=== PATIENT | female | born 1990 | race Caucasian/White ===

== ENCOUNTER 2020-06-20 08:31 | Inpatient (IN) | payer BC ==
[2020-06-20] VITALS (27 sets, daily range): BP systolic 100–147; BP diastolic 55–86
[~2020-06-20] VITALS: Ht 180.3 cm; Wt 175.4 kg
[~2020-06-20 08:31] MED LIST: DUONEB 2.5-0.5 M3 ML INH; LEVAQUIN 500 M500 M4 PO; PROAIR HFA8.5 GM INH; SALINE NASAL SP30 ML NASAL
[2020-06-20 09:30] LABS: BE(vivo) -2.6 mmol/L (-2 to +3); HCO3 20.6 mmol/L (22.0-26.0); PCO2 31.2 mmHg (35.0-45.0); PO2 67.1 mmHg (80.0-100.0); pH 7.437 (7.360-7.450); sO2 94.2 % (92.0-98.0)
[2020-06-20 09:34] LABS: ABSOLUTE NEUTROPHILS 15.1 thou/uL (1.4-8.2); BASOPHILS 0.3 % (0.0-2.0); EOSINOPHILS 0.3 % (0.0-3.0); HEMATOCRIT 38.6 % (37.0-47.0); HEMOGLOBIN 12.8 gm/dL (12.0-15.0); LYMPHOCYTES 5.8 % (24.0-44.0); MCH 29.4 pg (26.0-34.0); MCHC 33.2 g/dL (28.0-37.0); MCV 88.6 fL (80.0-100.0); MONOCYTES 6.3 % (1.0-8.0); PLATELET COUNT 225 thou/uL (150-400); POLYS 87.3 % (36.0-66.0); RBC 4.35 mil/uL (4.20-5.00); RDW 14.2 % (10.5-14.5); WBC 17.3 thou/uL (4.0-11.0)
[2020-06-20 09:38] LABS: CREATININE 0.9 mg/dL (0.6-1.0); POTASSIUM 3.8 mmol/L (3.5-5.1)
[2020-06-20 09:46] LABS: ALBUMIN 3.3 g/dL (3.4-5.0); TOTAL BILIRUBIN 0.5 mg/dL (0.2-1.0); TOTAL PROTEIN 7.3 g/dL (6.4-8.2)
--- NOTE | 2020-06-20 13:20 | NUR ---
PATIENT ADMITTED TO ICU ROOM 246 VIA CART FROM ED. PLACED IN ENTERIC PRECAUTIONS. PLACED BACK ON BIPAP AFTER AMBULATING TO THE BED AND FIO2 INCREASED TO 70%. RESP RATE IN THE [address] SOLORIO IN UNIT AND AWARE. PATIENT STATES THAT SHE IS NOT WANT THE BREATHING TUBE AT THIS TIME. O2 SAT IN THE MID 80'S AND FIO2 INCREASED TO 80% AT 1310.
--- NOTE | 2020-06-20 17:34 | NUR ---
SPOKE WITH THE PATIENT'S MOTHER, SOMMER AND UPDATED HER. GIVEN CODE FOR UPDATES.
--- NOTE | 2020-06-20 18:00 | NUR ---
PATIENT HAS STABALIZED SHE IS RESTING QUIETLY IN THE CHAIR. DYSPNEA NOTED WITH MINIMAL EXERTION. WILL CONTINUE TO MONITOR.
[2020-06-21] VITALS (37 sets, daily range): BP systolic 109–164; BP diastolic 48–93
[2020-06-21 01:06] LABS: GLYCOHEMOGLOBIN (HGB A1C) 5.9 % (4.8-5.6)
--- NOTE | 2020-06-21 03:04 | NUR ---
Report received at 1900, care assumed. pt reports SOB on exertion. On BIPAP settings, FIO2 INCREASED TO 80%. Assessments done as documeted. pt noted to be tachypneic. Reports being anxiuos. Pt encouraged to slow down on breathing and breathe normal. FIO2 increased to 90% due to pt desating to low 80s. Will continue to monitor.
[2020-06-21 05:36] LABS: HEMATOCRIT 37.8 % (37.0-47.0); HEMOGLOBIN 12.1 gm/dL (12.0-15.0); MCH 29.1 pg (26.0-34.0); MCHC 32.1 g/dL (28.0-37.0); MCV 90.6 fL (80.0-100.0); RBC 4.17 mil/uL (4.20-5.00); RDW 14.1 % (10.5-14.5); WBC 16.9 thou/uL (4.0-11.0)
[2020-06-21 05:37] LABS: CALCIUM 9.1 mg/dL (8.5-10.1); CREATININE 0.8 mg/dL (0.6-1.0); POTASSIUM 4.1 mmol/L (3.5-5.1)
--- NOTE | 2020-06-21 09:13 | HC ---
[facility] [place] [address] CONSULTATION Name: KEL GARCIA Room #: 246-P ADM IN M.R.#: [id number] Admission: 06/20/20 Attend Phys: Vincent Jurado MD Discharge: Date of : 86 Report #: [id number] THIS REPORT FOR: cc: FAM - Family physician unknown FAM - Family physician unknown Sylvester Zaman MD ~ DATE OF SERVICE: 06/20/2020 INFECTIOUS DISEASE CONSULTATION ATTENDING PHYSICIAN: Dr. Juardo REASON FOR EVALUATION: Pneumonitis, setting of asthma. HISTORY OF PRESENT ILLNESS: Chart reviewed, patient examined. This is a 29-year-old with a known history of asthma, who has been ill for the last 24-36 hours. It started as a cough that was somewhat of a nuisance and progressed over the course of several hours. Last evening, she developed fevers and more dyspnea, some wheezing. Denied any significant gastrointestinal-related complaints. It is not clear that she has had any exposure history. In the emergency room, was found to have hypoxemia with a pO2 of 67, on a nonrebreather. White count was elevated to 17.3. Chest x-ray noted bilateral patchy pulmonary infiltrates, greatest in the right upper lobe. COVID test, initially the antigen was negative. Repeat test is pending. She is currently afebrile. She is generally lucid. She was empirically started on azithromycin and ceftriaxone, given methylprednisolone as well. ALLERGIES: None known. MEDICATIONS: Include azithromycin, ceftriaxone, famotidine, enoxaparin, guaifenesin, methylprednisolone, thiamine, ipratropium, albuterol inhaler, hydrocodone and acetaminophen. PAST MEDICAL HISTORY: As described above, history of asthma. SOCIAL HISTORY: Nonsmoker. No ethanol, no illicit drug use. FAMILY HISTORY: Noncontributory. REVIEW OF SYSTEMS: Otherwise, unremarkable 10-point review of systems. PHYSICAL EXAMINATION: GENERAL: She is alert, cooperative. She is in [id number] distress. She is obese. [address] [address] CONSULTATION Name: KEL GARCIA Room #: [facility] IN .R.#: [id number] Admission: 06/20/20 Attend Phys: Vincent Jurado MD Discharge: Date of : 86 Report #: [id number] VITAL SIGNS: Temperature 98.5, pulse ____, respirations 30, blood pressure 147/81. SKIN: Warm, dry. No rashes. HEENT: Normocephalic. Extraocular muscles are intact. She has a BiPAP in place. NECK: Supple. LUNGS: Few scattered wheezes. Coarse breath sounds. HEART: Regular, distant. I do not appreciate a murmur. ABDOMEN: Obese, soft, nontender. EXTREMITIES: No cyanosis. GENITOURINARY AND RECTAL: Deferred. LABORATORY DATA: Procalcitonin 0.29. ProBNP of 426. Initial COVID antigen testing was negative. Lactic acid 1.0. Chest x-ray as described above and bilateral patchy infiltrates. Electrolytes: Sodium 139, potassium 3.8, chloride 103, bicarb 26, anion gap of 10. BUN and creatinine 10 and 0.9, glucose of 150. LFTs unremarkable. Albumin of 3.3, total protein is 7.3, estimated GFR of 73. CBC: White count of 17.3, H 12.8 and 38.6, platelets of 225 and lymphocytopenia. ABGs: The pH 7.437, pCO2 of 31.2, pO2 of 67.1 and again, on a nonrebreather and now on BiPAP. ASSESSMENT: Pneumonitis in the setting of asthma, complicated by respiratory failure. Certainly, I agree with empiric antimicrobial therapy. I think the ceftriaxone and azithromycin is reasonable, considering it is likely community-acquired and we will check some additional urinary antigens. Await COVID results. Flu swab is pending as well. Continue corticosteroids. In the event that she is COVID positive, I would likely add remdesivir. She remains tenuous at this point. Continue oxygen support, wean as allowed. <ELECTRONICALLY SIGNED> By: Sylvester Zaman MD 06/21/20 0913 [id number] Sylvester Zaman MD /nt
--- NOTE | 2020-06-21 12:30 | NUR ---
PATIENT ASSISTED UP TO THE CHAIR AND PLACED ON OPTIFLOW WITH FIO2 AT 89% AND FLOW OF 55L. TOLERATING WELL, ABLE TO EAT DIET.
--- NOTE | 2020-06-21 14:27 | NUR ---
patient admits with SOA/asthma. Attempted to call mom no answer. Chart reviewed. Patients COVID negative. She cont in isolation. She currently on BIPAP. 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 Casemgt following for dc planning.
--- NOTE | 2020-06-21 16:49 | NUR ---
PATIENT IS PROGRESSING TOWARDS OUTCOME GOALS O2 SAT IN THE LOWER TO MID 90'S. VSS. MONITOR SHOWING NSR. ABLE TO FEED SELF AND DO ORAL CARE.
[2020-06-22] VITALS (24 sets, daily range): BP systolic 106–147; BP diastolic 52–79
[2020-06-22 03:12] LABS: HEMATOCRIT 36.9 % (37.0-47.0); HEMOGLOBIN 11.7 gm/dL (12.0-15.0); MCH 28.9 pg (26.0-34.0); MCHC 31.8 g/dL (28.0-37.0); MCV 90.8 fL (80.0-100.0); RBC 4.06 mil/uL (4.20-5.00); RDW 14.3 % (10.5-14.5); WBC 19.6 thou/uL (4.0-11.0)
[2020-06-22 03:21] LABS: CALCIUM 9.2 mg/dL (8.5-10.1); CREATININE 0.9 mg/dL (0.6-1.0); POTASSIUM 4.5 mmol/L (3.5-5.1)
--- NOTE | 2020-06-22 06:34 | NUR ---
ASSUMED CARE AT 1900. ASSISTED TO BSC, PT HAD BM AND CONCENTRATED URINE OUT. GOT INTO BED AFTERWARD. VERY LITTLE O2 RESERVE FOR THIS MINIMAL ACTIVITY, TOOK 10-15 MINUTES FOR RR TO GET BELOW 35 AND O2 SATS FROM 87% BACK TO 91%. DESATS TO 85-97% WHEN COUGHING. OPTIFLO INCREASED TO 94% AT 0145. 2245-SPOKE TO ARSEN, GOT PPN DC-D AND STARTED IVF.
--- NOTE | 2020-06-22 15:30 | NUR ---
ASSUMED CARE AT 0700. SPOKE WITH PATIENT'S MOTHER FROM [phone] AND SHE WAS UPDATED ON PATIENT'S CONDITION AND PLAN OF CARE.
[2020-06-23] VITALS (25 sets, daily range): BP systolic 118–160; BP diastolic 3–87
[2020-06-23 03:02] LABS: CREATININE 0.8 mg/dL (0.6-1.0); POTASSIUM 4.4 mmol/L (3.5-5.1)
--- NOTE | 2020-06-23 06:20 | NUR ---
This RN to bedside at 1900. Patient afebrile, coarse, VSS. Remained on hi flow nasal cannula all night. 94% and 50L. Fluids infusing. Coarse lung sounds throughout. Patient did not void all night. Will pass on to dayshift and will continue to monitor.
--- NOTE | 2020-06-23 11:01 | NUR ---
ASSUMED CARE AT 0700. PATIENT'S MOTHER CALLED AND WAS UPDATED AND EDUCATED ON PATIENT'S CONDITION AND PLAN OF CARE FROM [phone].
[2020-06-24] VITALS (32 sets, daily range): BP systolic 113–171; BP diastolic 55–88
[2020-06-24 04:20] LABS: CREATININE 0.8 mg/dL (0.6-1.0); POTASSIUM 4.4 mmol/L (3.5-5.1)
--- NOTE | 2020-06-24 06:10 | NUR ---
Patient status essentially unchanged. Pt remains on hi flow nasal cannula at 50L and 94%. Patient easily desats once coughing, up to the bathroom or exerting much energy. Attempted to place on bipap a couple times when patient was breathing 30+ a minute and consistently satting 87-90%. Patient refused bipap. RN educating patient on saving energy and how dangerous it can be to saturation below 90%. Patient says she is aware and refused bipap. Sats remain 88-92%. Patient sounds coarse and wheezy throughout.
--- NOTE | 2020-06-24 13:46 | NUR ---
chart review. cont to require bipap and o2. unable to visit with lina. smiley called her mom steven, no answer. left message requested call back. will cont following as needed for dc needs.
--- NOTE | 2020-06-24 18:32 | NUR ---
ASSUMED CARE AT 0700. SPOKE WITH PATIENT'S MOTHER AND UPDATED HER ON PATIENT CONDITION AND PLAN OF CARE. THE CALL WAS FROM [phone]. PATIENT SLOWLY PROGRESSING TOWARDS THE PLAN OF CARE EVIDENCED BY SLIGHTLY LOWER BUT STILL HIGH OXYGEN DEMANDS.
[2020-06-25] VITALS (27 sets, daily range): BP systolic 102–149; BP diastolic 52–85
--- NOTE | 2020-06-25 05:53 | NUR ---
This RN to bedside at 1900. Patient Optiflow settings remain the same. 50L and 94% to keep oxygen sats above 90%. Around 0300, patient desatting and sustaining 84-89% Patient refused Bipap multiple times even with further education. Patient stated "I want to get better I can't get on bipap". Even with further education patient refuses bipap. Irvin RT changed out bipap machine tubing and patient seemed to be oxygenating better. Patient currently satting low 90's. Lungs sound coarse and wheezy. Will continue to monitor.
--- NOTE | 2020-06-25 13:16 | NUR ---
ANIMAL RIDES MANAGER FROM [employer] CALLING TO OBTAIN INFORMATION, SHE WASDIRECTED TO THE HOSPITAL OPPERATOR TO SPEAK WITH SARIAH.
--- NOTE | 2020-06-25 14:21 | NUR ---
FOR DC PLANNING ASSISTANCE CALL ALLISON SANTIAGO / , EXT [phone] .
[2020-06-25 16:43] LABS: HEMOGLOBIN 11.6 gm/dL (12.0-15.0); MCH 28.5 pg (26.0-34.0); MCHC 32.3 g/dL (28.0-37.0); MCV 88.4 fL (80.0-100.0); RBC 4.08 mil/uL (4.20-5.00); WBC 15.8 thou/uL (4.0-11.0)
[2020-06-25 16:47] LABS: CALCIUM 9.1 mg/dL (8.5-10.1); CREATININE 0.7 mg/dL (0.6-1.0); MAGNESIUM 2.3 mg/dL (1.8-2.4); POTASSIUM 4.4 mmol/L (3.5-5.1)
[2020-06-26] VITALS (32 sets, daily range): BP systolic 108–160; BP diastolic 44–97
--- NOTE | 2020-06-26 05:24 | NUR ---
NO SIGNIFICANT EVENTS OVER NIGHT. NO C/O PAIN. PT SAT UP IN THE CHAIR FOR A FEW HOURS AT BEGINNING OF SHIFT. SHE HAS BEEN SLEEPING MOST OF THE NIGHT. RESPIRATIONS EVEN AND UNLABORED. PT DOES DESAT INTO THE MID-UPPER 80S WITH EXERTION. SHE REMAINS ON OPTIFLOW 45L, 70% FIO2. PROGRESSING SLOWLY TOWARD POC GOALS. WILL CONTINUE TO MONITOR FURTHER.
[2020-06-26 06:09] LABS: HEMATOCRIT 35.6 % (37.0-47.0); HEMOGLOBIN 11.2 gm/dL (12.0-15.0); MCH 28.4 pg (26.0-34.0); MCHC 31.4 g/dL (28.0-37.0); MCV 90.6 fL (80.0-100.0); RBC 3.93 mil/uL (4.20-5.00)
[2020-06-26 06:31] LABS: CALCIUM 8.8 mg/dL (8.5-10.1); CREATININE 0.8 mg/dL (0.6-1.0); MAGNESIUM 2.4 mg/dL (1.8-2.4); POTASSIUM 4.2 mmol/L (3.5-5.1)
--- NOTE | 2020-06-26 14:03 | NUR ---
INCENTIVE SPIROMETER GIVEN WITH INSTRUCTION TO PT. PT APPEARS EXCITED TO USE IS.
--- NOTE | 2020-06-26 16:00 | NUR ---
PT'S MOTHER AND DESIGNATED CONTACT KONGReid GARCIA CALLED AND WAS GIVEN PT UPDATE. RN ANSWERED ALL QUESTIONS PT'S MOTHER HAS AT THIS TIME.
[2020-06-27] VITALS (55 sets, daily range): BP systolic 98–157; BP diastolic 46–82
[2020-06-27 05:44] LABS: HEMATOCRIT 35.7 % (37.0-47.0); HEMOGLOBIN 11.5 gm/dL (12.0-15.0); MCH 28.7 pg (26.0-34.0); MCHC 32.1 g/dL (28.0-37.0); MCV 89.5 fL (80.0-100.0); RBC 3.99 mil/uL (4.20-5.00); RDW 13.9 % (10.5-14.5); WBC 12.9 thou/uL (4.0-11.0)
[2020-06-27 06:06] LABS: CALCIUM 8.9 mg/dL (8.5-10.1); CREATININE 0.8 mg/dL (0.6-1.0); MAGNESIUM 2.3 mg/dL (1.8-2.4); POTASSIUM 4.2 mmol/L (3.5-5.1)
--- NOTE | 2020-06-27 11:07 | NUR ---
ASSUMED CARE AT 0700, ASSESSMENT AND VITAL SIGNS COMPLETED PER ICU PROTOCOL. DR. ABARCA ROUNDED THIS AM, PLAN OF CARE DISCUSSED, NEW ORDERS RECEIVED. RN WILL CONTINUE TO MONITOR.
--- NOTE | 2020-06-27 12:27 | NUR ---
ON-GOING ASSESSMENT: CM REVIEWED CHART. PT REMAINS ON HIGH FI02. PT IS CONTINUING ON IV ANBX AND IV STEROIDS. CM WILL CONTINUE TO FOLLOW TO ASSIST NEEDED.
[2020-06-28] VITALS (10 sets, daily range): BP systolic 94–136; BP diastolic 47–83
--- NOTE | 2020-06-28 02:41 | NUR ---
PATIENT REMAINS A/O. DENIES ANY SOA. AFEBRILE. VSS. REMAINS ON 8L VIA NC. PATIENT TX ORDERS TO CCU. REPORT CALLED TO CCU RN. PATIENT OFF THE UNIT AT APPROX 0200. TRANSFERRED VIA HOSPITAL BED. ATTACHED TO THE MONITOR. PORTABLE OXYGEN. DENIES NEEDS. ALL QUESTIONS ANSWERED. PATIENT TRANSFERED WITH ALL PERSONAL BELONGINGS.
[2020-06-28 03:21] LABS: HEMATOCRIT 35.8 % (37.0-47.0); HEMOGLOBIN 11.5 gm/dL (12.0-15.0); MCH 28.7 pg (26.0-34.0); MCHC 32.1 g/dL (28.0-37.0); MCV 89.5 fL (80.0-100.0); RDW 13.7 % (10.5-14.5); WBC 12.6 thou/uL (4.0-11.0)
[2020-06-28 03:28] LABS: CREATININE 0.8 mg/dL (0.6-1.0); MAGNESIUM 2.2 mg/dL (1.8-2.4); POTASSIUM 4.3 mmol/L (3.5-5.1)
--- NOTE | 2020-06-28 08:00 | NUR ---
TRANSFER FROM ICU; AOX4/SBA TO BS; SB ON THE MONITOR; 6L N/C WITH SATs IN THE 90s; PLAN IS FOR PATIENT TO CONTINUE SCHEDULED MEDS FOR AN ADDITIONAL 3 DAYS; WILL CONTINUE TO MONITOR
[2020-06-28 13:15] LABS: CALCIUM 9.1 mg/dL (8.5-10.1)
--- NOTE | 2020-06-28 15:55 | NUR ---
Case discussed with the care team. Pt is slowly weaning down o2 and is now at 5-6liters. Continuing iv atb/steriods as well as pulm tolieting. No weekend dc anticipated. Pt is up ad judson. Cm anticipates dc home with outpt f/u. Will following along should the pt need home o2 at dc.
--- NOTE | 2020-06-28 19:58 | NUR ---
RECEIVED PT'S CARE AROUND; 0710; PT. ON CHAIR; ALERT; DURING AM ASSESSMENT AOX4; NO C/O PAIN; SR ON THE MONITOR; ON 6L; O2 TITRATE TO 5L; O2 SAT 96%; AM MEDICATIONS GIVEN; EDUCATED ABOUT FALL PRECAUTIONS; ST. UNDERSTANDING; EDUCATED ABOUT MEDICATION CHANGED FROM IV TO PO; ST. UNDERSTANDING; ASSESSMENT CHARGED; FOLLOWING POC; PASSED ON REPORT;
[2020-06-29 03:14] LABS: HEMATOCRIT 33.9 % (37.0-47.0); HEMOGLOBIN 10.9 gm/dL (12.0-15.0); MCH 28.8 pg (26.0-34.0); MCHC 32.2 g/dL (28.0-37.0); MCV 89.4 fL (80.0-100.0); RBC 3.8 mil/uL (4.20-5.00); RDW 13.7 % (10.5-14.5); WBC 11.5 thou/uL (4.0-11.0)
[2020-06-29 03:25] LABS: CREATININE 0.7 mg/dL (0.6-1.0); MAGNESIUM 2.2 mg/dL (1.8-2.4)
[2020-06-29 04:30] VITALS: BP 135/74
--- NOTE | 2020-06-29 05:27 | NUR ---
ASSUMED CARE OF PATIENT AT 1900; A0X4/ UP TO BSC AND CHAIR; SR/SB ON THE MONITOR; ON 5L N/C WITH 02 SATs ABOVE 90; NO C/O OF PAIN; PLAN IS FOR PATIENT TO REMAIN FOR OBSERVATION AND CONTINUE TITRATING OXYGEN DOWN, TOLERATED; WILL CONTINUE TO MONITOR.
[2020-06-29 07:25] VITALS: BP 138/80
[2020-06-29 11:06] VITALS: BP 118/61
[2020-06-29 16:41] VITALS: BP 127/65
[2020-06-29 19:30] VITALS: BP 117/54
--- NOTE | 2020-06-29 19:44 | NUR ---
RECEIVED PT'S CARE AROUND 0720; PT. ON BED; RESTING WITH EYES CLOSED; EQUAL CHEST RISING NOTIFED; SB ON THE MONITOR; DURING AM ASSESSMENT PT. AOX4; NO C/O PAIN; ST ON THE MONITOR; PT. IN THE BATHROOM; NO C/O SOB; LEADS OFF; PT. TOOK A SHOWER WITHOTU NOTIFYING NURSE OR NURSE AID; EDUCATED ABOUT THE IMPORTANCE OF NOTIFY DUE TO MIGHT PASS OUT IN THE RESTHROOM OR SOB; ST. UNDERSTANDING; ST ON THE MONITOR; PHYSICIAN NOTIFIED DURING ROUNDING; ORDERS ON PLACED; EDUCATED ABOUT CARDIZEM MEDICATION; ST. UNDERSTANDING; EDUCATED ABOUT CALLING IF FEELING DIZZIE OR HAVING HEADACHE; ST. UNDERSTANDING; NO C/O THROUGH THE AFTERNOON; O2 TITRATE FROM 5L TO 1L; NO C/O SOB; 02 SAT ABOVE 90%; ST WITH EXERTION; ASSESSMENT CHARGED; FOLLOWING POC; PASSED ON REPORT;
[2020-06-30 03:40] VITALS: BP 128/67
--- NOTE | 2020-06-30 04:09 | NUR ---
ASSUMED PATIENT CARE AT 1845. VITAL SIGNS STABLE WITH PATIENT HAVING NO COMPLAINTS OF PAIN OR NAUSEA. FULLY ORIENTED, PATIENT IS ABLE TO CALL APPROPRIATELY FOR NEEDS AND PARTICIPATE IN CARE. BREATHING STABLE ON LOW LEVEL OXYGEN EVIDENCED BY ASSESSMENTS AND SPOT OXYGENATION CHECKS. NO COMPLAINTS OF SOA WITH ACTIVITY. UP AD STEFANIE THROUGHOUT SHIFT INCIDENT FREE. PATIENT IS ANXIOUS FOR POTENTIAL DISCHARGE TODAY. CONTINUE PLAN OF CARE.
[2020-06-30] MEDS ORDERED: CARDIZEM CD 18180 M3 PO (08:02)
[2020-06-30] MEDS ORDERED: CEFDINIR300 MG PO (08:02)
[2020-06-30] MEDS ORDERED: PREDNISONE 20 M20 M1 PO (08:03)
[2020-06-30 08:45] VITALS: BP 136/70
--- NOTE | 2020-06-30 09:56 | NUR ---
RECEIVED PT'S CARE AROUND 0720; PT. ON BED; AOX4; DURING AM ASSESSMENT ON RA; 02 TITRATE FROM 1L TO RA BY RT; 92% O2 SAT; NO C/O SOB; NO C/O PAIN; AM MEDICATIONS GIVEN; EDUCATED TO NOTIFIED IF FEELING SOB; REMAINED ABOUT NEW MEDICATION; ST. UNDERSTANDING; EDUCATED ABOUT D/C PROCESS; ST. UNDERSTANDING; ST ON THE MONITOR WITH EXERTION; PHYSICIAN NOTIFIED; NO NEW ORDERS; PER PHYSICIAN OK FOR PT. TO GO HOME; PER DR. ABARCA OK FOR PT. TO GO HOME; ASSESSMENT CHARGED; FOLLOWING POC; WILL WORK ON D/C PAPERS;
[2020-06-30 10:59] VITALS: BP 136/70
--- NOTE | 2020-07-01 07:52 | EKG ---
[address] [address] ELECTROCARDIOGRAM REPORT Name: KEL GARCIA Room #: 211-P [facility]#: [id number] Admission: 06/20/20 Attend Phys: Vincent Jurado MD Discharge: 06/30/20 Date of : 86 Report #: [id number] [facility] ED Test Date: 2020-06-20 Test Time: 08:47:06 Pat Name: KEL GARCIA Department: Room: 246 Gender: F [employer]: [place] : 1990 Requested By: Vincent Jurado Order Number: [id number] MD: Suhas Suarez Measurements Intervals [place] Rate: 104 P: 61 NV: 150 QRS: 3 QRSD: 98 T: 17 QT: 334 QTc: 440 Interpretive Statements Sinus tachycardia Compared to ECG 08/26/2014 13:01:26 No significant changes Electronically Signed On 06-20-2020 12:39:25 CUPOLA REPAIRER by Suhas Suarez [email or web address] <ELECTRONICALLY SIGNED> By: Suhas Suarez MD 06/20/20 1239 6 6 Suhas Suarez MD /JARRED
[2020-07-02] MEDS ORDERED: PROAIR HFA8.5 GM INH (10:46)
== END 2020-06-30 11:48 | disposition home or self-care (01) | DRG 871 ==
LOC: ER 08:31 → EROBS 11:00 → ICU 11:00 → 2N 06-28 02:24
PROVIDERS: Emergency Medicine; Internal Medicine Pulmonary Disease; Nurse Practitioner; ADMIT Internal Medicine; ATTEND Internal Medicine
PROC: 5A09357 Assistance with Respiratory Ventilation, Less than 24 Consecutive Hours, Continuous Positive Airway Pressure (ICD-10-PCS; principal; 2020-06-20)
PROC: 5A09357 Assistance with Respiratory Ventilation, Less than 24 Consecutive Hours, Continuous Positive Airway Pressure (ICD-10-PCS; 2020-06-21)
PROC: 5A0955A Assistance with Respiratory Ventilation, Greater than 96 Consecutive Hours, High Flow/Velocity Cannula (ICD-10-PCS; 2020-06-21)
PROC: 5A0935A Assistance with Respiratory Ventilation, Less than 24 Consecutive Hours, High Flow/Velocity Cannula (ICD-10-PCS; 2020-06-28)
DX: A41.9 Sepsis, unspecified organism (principal); J96.01 Acute respiratory failure with hypoxia; J18.9 Pneumonia, unspecified organism; J45.901 Unspecified asthma with (acute) exacerbation; Z68.43 Body mass index [BMI] 50.0-59.9, adult; Q23.1 Congenital insufficiency of aortic valve; E66.01 Morbid (severe) obesity due to excess calories; Z20.828 Contact with and (suspected) exposure to other viral communicable diseases; Z79.899 Other long term (current) drug therapy; Z91.018 Allergy to other foods
CPT/HCPCS: 10078; 10081